=== PATIENT | female | born 1985 | race Two or more races ===

== ENCOUNTER 2024-09-11 18:47 | Emergency (ER) | payer OTHER, SELFPAY ==
--- NOTE | ~2024-09-11 | CT_ITS ---
CLINICAL HISTORY: LLQ pain N V D CT abdomen and pelvis with contrast Comparison: None Findings: No consolidation or effusion. There is focal stranding about the proximal descending colon, reference axial images 28 -35. No abscess or free air. Diverticulosis is present. No bowel obstruction. The liver, gallbladder, spleen, adrenal glands and pancreas are unremarkable. Kidneys, ureters and bladder appear normal. Uterus and adnexa are within expected limits. No acute osseous finding. Impression: Findings are consistent with diverticulitis involving the proximal descending colon. No free air or abscess. Follow-up recommended to ensure resolution. This document has been electronically signed by: Rashel Craig MD on 09/12/2024 03:56:15
--- NOTE | 2024-09-11 18:59 | ECG_ITS ---
Test Reason : CP Blood Pressure : */* mmHG Vent. Rate : 78 BPM Atrial Rate : 78 BPM P-R Int : 142 ms QRS Dur : 78 ms QT Int : 408 ms P-R-T Axes : 66 57 42 degrees QTcB Int : 465 ms Normal sinus rhythm with sinus arrhythmia Normal ECG No previous ECGs available Referred By: Rowan Mercado Electronically Signed By: BLAKE STROUD
[2024-09-11 19:05] VITALS: BP 126/87; PULSE 84; RESP 18; TEMP 36.8; O2SAT 100; BMI 21.8
--- NOTE | 2024-09-11 19:05 | ED_ITS ---
HPI - Abdominal Pain General Chief Complaint: General Medical Stated Complaint: Lower abdominal pain Time Seen by Provider: 09/12/24 00:56 History of Present Illness HPI narrative: a 39 year old female with no significant past medical history presenting with 3 days of left sided abdominal pain. Pain is sharp and constant. Pain is associated with feeling bloated, vomiting x1 on day one, watery diarrhea x1 earlier this morning, chills and sweats. She reports feeling hot and unwell a day ago but did not check for a fever. Denies any chest pain, URI symptoms, dysuria or hematuria. No sick contacts or known exposure to GI illness. Also states having an abnormal gush of blood last week when her period began. At that point she had soaked through her clothes but has not had a similar episode again. Denies any history of ovarian cysts although states having an irregular cycle that has worsened since coming off control. She has taken Ibuprofen for the pain with slight relief. Additionally she experiences feeling nauseous upon walking to the bathroom in the ED. MD elicited complaint: abdominal pain and flank pain Pertinent past history: none Onset (ago): day(s) Pain Consistency: constant Location: diffuse and LLQ Severity: moderate Quality: sharp Radiation: LLQ Exacerbating factors: nothing Relieving factors: nothing Associated symptoms: nausea, vomiting, diarrhea and chills Related Data Date of Last Menstrual Period: 10/04/24 Previous Rx's ?Medication ?Instructions ?Recorded levofloxacin 500 mg tablet 500 mg PO DAILY 10 days #10 tabs 09/12/24 metronidazole 500 mg tablet 500 mg PO TID #30 tabs 09/12/24 tramadol 50 mg tablet 50 mg PO Q6H PRN pain #20 tabs 09/12/24 Allergies Allergy/AdvReac Type Severity Reaction Status Date / Time Sulfa (Sulfonamide Allergy Unknown Verified 09/11/24 19:08 Antibiotics) Review of Systems Review of Systems Yes all other systems are reviewed and are negative PMFSH Past Medical History Attestation statement: The following information was validated with the patient. Source: old records reviewed Date of Last Menstrual Period: 10/04/24 Social History Social History Alcohol intake: current Alcohol intake frequency: holidays/special occasions only Physical Exam ED Vital Signs: Vital Signs - 24 hr 09/12/24 04:08 09/12/24 06:37 Temperature 97.9 F 98.1 F Pulse Rate 65 65 Respiratory Rate 18 18 Blood Pressure 102/57 L 108/66 Pulse Oximetry 99 Oxygen Delivery Method Room Air BMI result Body Mass Index 21.8 Const General: cooperative, healthy appearing, comfortable and no acute distress GI Palpation (GI): Tenderness to palpation present (GI) (diffuse abdominal tenderness that radiates to the LLQ, worse LUQ/LLQ) in the LLQ and in the LUQ Course Course Course Narrative: This is an RME: Additional HPI, ROS, PE not included below will be deferred to primary provider. RME assessment and note performed by: Rowan Mercado PA-C This is a 34-dwtx-veb-female, with no known medical problems, who presents to the ER with complaints of lower abdominal pain and shortness of breath. Reports that last night she had a fevers. Endorsing diarrhea this AM. No urinary symptoms. No sick contacts. LLQ TTP. Plan: Labs, UA, CXR, EKG, further ER eval needed. Reevaluation(s) Reevaluation #1: patient signed out to ED attending Dr. Marie pending CT of the abdomen and pelvis, re-evaluation and disposition. Time: 04:01 Reevaluation #2: Dr. Marie : CT scan showed uncomplicated diverticulitis will give a dose of IV Zosyn discharge patient on Levaquin and Flagyl advised to follow up as outpatient Medical Decision Making Medical Decision Making MDM Narrative: 39 year old female with no significant past medical history presenting for evaluation of 3 day history of sharp left sided abdominal pain that is associated with one episode of vomiting, diarrhea, sweats, chills, and bloating. She is afebril, vitally stable, in no acute distress. Physical exam reveals diffuse abdominal tenderness to palpation in all 4 quadrants that radiates to the LLQ, there is moderate pain to palpation of the LLQ and LUQ. Pt denies any URI symptoms or sick contacts making a viral illness less likely. She denies any urinary symptoms including dysuria, increased frequency, hematuria, significant flank pain. No CVA tenderness. Diagnostics obtained prior to my assumption included a UA which showed no evidence suggestive of a UTI and given no CVA tenderness pyelonephritis less likely. CBC revealed no leukocytosis, BMP not suggestive of acute kidney injury. EKG revealed normal sinus rhythm with a ventricular rate of 78, QTC is 465, no ST-elevation, no T-wave inversion. Given presentation, location of abdominal pain and age demographic, there is an increased concern for diverticulitis. Will obtain CTAP with contrast. Additionally, due to the patient reporting a gush of blood during her last menstrual cycle and location of pain initially reported in the LLQ there is a potential for an ovarian etiology, although low likelyhood. Will consider additional imaging with an ultrasound to look for cysts that could have ruptures if CT is nondiagnostic. Will give ketorolac and zofran in the meantime for pain and nausea control. Differential Diagnosis Differential Diagnoses: The differential diagnosis associated with the presentation includes ( see narrative above) Admission/Observation Consideration of admission/observation: Escalation of care including admission/observation considered Lab Data MDM Lab Attestation statement: I reviewed the patient's lab results. (see narrative above) 09/11/24 19:25 09/11/24 19:25 Labs: Lab Results 09/11/24 09/12/24 Range/Units 19:25 01:15 WBC 9.8 (4.8-10.8) X10*3/uL RBC 3.90 L (4.20-5.50) X10*6/uL Hgb 10.9 L (12.0-16.0) g/dl Hct 32.8 L (37.0-47.0) % MCV 84.1 (80.0-98.0) fL MCH 27.9 (27.0-33.0) pg MCHC 33.2 (31.0-35.0) g/dl RDW 13.4 (11.0-16.0) % Plt Count 390 (160-400) X10*3/uL MPV 9.4 (9.4-12.3) fL Immature Gran % (Auto) 0.2 (0.0-0.4) % Neut % (Auto) 64.8 (45-73) % Lymph % (Auto) 25.0 (20-40) % [place] % (Auto) 7.8 (2-11) % Eos % (Auto) 1.5 (0-4) % Baso % (Auto) 0.7 (0-2) % Lymph # (Auto) 2.4 (1.2-4.9) X10*3/uL [place] # (Auto) 0.8 (0.1-1.2) X10*3/uL Eos # (Auto) 0.2 (0.0-0.4) X10*3/uL Baso # (Auto) 0.1 (0.0-0.2) X10*3/uL Abs Immat Gran (auto) 0.02 (0.00-0.03) X10*3/uL Absolute Neuts (auto) 6.3 (2.0-8.3) x10*3/uL Absolute Nucleated RBC 0.000 (0.0-0.012) X10*3/uL Nucleated RBC % (auto) 0.0 (0.0-0.2) /100WBC Sodium 141 (135-145) mmol/L Potassium 4.2 (3.3-5.1) mmol/L Chloride 108 (96-108) mmol/L Carbon Dioxide 27 (22-29) mmol/L Anion Gap 10 L (12-20) BUN 6 L (9-16) mg/dL Creatinine 0.66 (0.5-1.4) mg/dL Estim Creat Clear Calc 106.0 Estimated GFR > 60 Random Glucose 85 (60-115) mg/dL Calcium 9.5 (8.4-10.2) mg/dL Magnesium 2.2 (1.6-2.6) mg/dL Total Bilirubin 1.1 H (0.0-1.0) mg/dL Direct Bilirubin 0.3 (0.0-0.5) mg/dL AST 33 H (5-31) U/L ALT 20 (0-31) U/L Alkaline Phosphatase 62 (39-117) U/L Total Protein 7.3 (6.5-8.0) g/dL Albumin 4.2 (3.5-5.0) g/dL Lipase 27 (8-78) U/L Beta HCG, Quant < 2 mIU/mL Urine Color Yellow Urine Appearance Cloudy Urine pH 6.5 (5.0-9.0) Ur Specific [place] 1.015 (1.005-1.025) Urine Protein Negative (Neg-Trace) mg/dL Urine Glucose (UA) Negative (Negative) mg/dL Urine Ketones Trace (Negative) mg/dL Urine Blood Negative (Negative) Urine Nitrite Negative (Negative) Ur Leukocyte Esterase Trace H (Negative) Urine RBC 0-2 (0-2) /HPF Urine WBC 6-10 H (0-5) /HPF Ur Squamous Epith Cells >20 (0-2) /HPF Urine Bacteria 2+ (None Seen) Hyaline Casts 0-2 (0-2) /LPF Influenza Type A (PCR) NEGATIVE (Negative) Influenza Type B (PCR) NEGATIVE (Negative) RSV RNA Qual (PCR) NEGATIVE (Negative) SARS-CoV-2 RNA (RT-PCR) NEGATIVE (Negative) Radiology Impression Discussion of test interpretation with radiology: I have reviewed the radiologist's reading. Radiologist Impression: [address] [address] [address] Scan Report Signed Patient: Jesusita Fowler MR#: [id number] : 1985 Acct:[id number] Age/Sex: 39 / F ADM Date: 09/12/24 Loc: .ED Attending Dr: Ordering Physician: Belia Jeronimo CNP Date of Service: 09/12/24 Procedure(s): CT abdomen pelvis w IV con Accession Number(s): [id number] cc: Belia Jeronimo CNP; HALLE ALEMAN CYTOTECHNOLOGIST~ Report Number: [id number]: Total DLP = 400.00 mGy-cm CLINICAL HISTORY: LLQ pain N V D CT abdomen and pelvis with contrast Comparison: None Findings: No consolidation or effusion. There is focal stranding about the proximal descending colon, reference axial images 28 -35. No abscess or free air. Diverticulosis is present. No bowel obstruction. The liver, gallbladder, spleen, adrenal glands and pancreas are unremarkable. Kidneys, ureters and bladder appear normal. Uterus and adnexa are within expected limits. No acute osseous finding. Impression: Findings are consistent with diverticulitis involving the proximal descending colon. No free air or abscess. Follow-up recommended to ensure resolution. This document has been electronically signed by: Rashel Craig MD on 09/12/2024 03:56:15 External Record Review External record reviewed: Outpatient record Medications Administered Discontinued Medications Generic Name Dose Route Start Last Admin Trade Name Freq PRN Reason Stop Dose Admin Sodium Chloride 1,000 mls @ 999 mls/hr 09/12/24 02:30 09/12/24 06:29 Ns IV 09/12/24 03:30 Infused .Q1H1M JUSTO Infusion Piperacillin Sod/Tazobactam 50 mls @ 100 mls/hr 09/12/24 04:59 09/12/24 06:29 Sod 3.375 gm/ Sodium Chloride IV 09/12/24 05:28 Infused ONCE ONE Infusion Iohexol 85 ml 09/12/24 03:12 09/12/24 03:12 Iohexol 350 Mg/Ml 100 Ml Infus..Btl IV 09/12/24 03:13 85 ml ONCE ONE Administration Ketorolac Tromethamine 15 mg 09/12/24 02:23 09/12/24 03:14 Ketorolac Tromethamine 15 Mg/Ml Vial IVPUSH 09/12/24 02:24 15 mg ONCE ONE Administration Ondansetron HCl 4 mg 09/12/24 02:23 09/12/24 03:16 Ondansetron Hcl 4 Mg/2 Ml Vial IVPUSH 09/12/24 02:24 4 mg ONCE ONE Administration Discharge Plan Discharge Clinical Impression: Diverticulitis Patient Disposition: Home, Self-Care Instructions: Diverticulitis (ED), Diverticulitis Diet (ED) Additional Instructions: Drink plenty of fluids Liquid diet gradually progress as the pain tolerated Antibiotic as prescribed Pain medication as prescribed Report to the ER if pain gets worse/fever Prescriptions: New levofloxacin 500 mg tablet 500 mg PO DAILY 10 Days Qty: 10 0RF metronidazole 500 mg tablet 500 mg PO TID Qty: 30 0RF tramadol 50 mg tablet 50 mg PO Q6H PRN (Reason: pain) Qty: 20 0RF Interventions: ED Discharge Assessment Last Done: 09/12/24 06:37 Discharge Date/Time: 09/12/24 06:37 Print Language: Choose Not To Answer
[2024-09-11 19:38] LABS: MANUAL DIFF FLAG NO
[2024-09-11 19:48] LABS: Basophils Absolute Auto 0.1 X10*3/uL (0.0-0.2); Basophils Percent Auto 0.7 % (0-2); Eosinophils Absolute Auto 0.2 X10*3/uL (0.0-0.4); Eosinophils Percent Auto 1.5 % (0-4); Hematocrit 32.8 % (37.0-47.0); Hemoglobin 10.9 g/dl (12.0-16.0); Imm Gran Abs Auto 0.02 X10*3/uL (0.00-0.03); Imm Gran Pct Auto 0.2 % (0.0-0.4); Lymphocytes Absolute Auto 2.4 X10*3/uL (1.2-4.9); Mean Corpuscular HGB Conc 33.2 g/dl (31.0-35.0); Mean Corpuscular Hemoglobin 27.9 pg (27.0-33.0); Mean Corpuscular Volume 84.1 fL (80.0-98.0); Mean Platelet Volume 9.4 fL (9.4-12.3); Monocytes Absolute Auto 0.8 X10*3/uL (0.1-1.2); Monocytes Percent Auto 7.8 % (2-11); Neutrophils Absolute Auto 6.3 x10*3/uL (2.0-8.3); Neutrophils Percent Auto 64.8 % (45-73); Platelet Count 390 X10*3/uL (160-400); Red Cell Distribution Width 13.4 % (11.0-16.0); White Blood Count 9.8 X10*3/uL (4.8-10.8)
[2024-09-11 20:13] LABS: Alanine Aminotransferase 20 U/L (0-31); Albumin Level 4.2 g/dL (3.5-5.0); Alkaline Phosphatase 62 U/L (39-117); Anion Gap 10 (12-20); Aspartate Amino Transferase 33 U/L (5-31); Bilirubin Direct 0.3 mg/dL (0.0-0.5); Bilirubin Total 1.1 mg/dL (0.0-1.0); Blood Urea Nitrogen 6 mg/dL (9-16); Calcium 9.5 mg/dL (8.4-10.2); Carbon Dioxide 27 mmol/L (22-29); Chloride 108 mmol/L (96-108); Estimated Glomerular Filt Rate > 60; Glucose Random 85 mg/dL (60-115); HCG Quantitative < 2 mIU/mL; Lipase 27 U/L (8-78); Magnesium 2.2 mg/dL (1.6-2.6); Potassium 4.2 mmol/L (3.3-5.1); Sodium 141 mmol/L (135-145); Total Protein 7.3 g/dL (6.5-8.0)
[2024-09-11 20:27] LABS: Influenza A PCR NEGATIVE (Negative); Influenza B PCR NEGATIVE (Negative); Resp Syncy Virus RNA Qual PCR NEGATIVE (Negative); SARS COV2 PCR INHOUSE NEGATIVE (Negative)
[2024-09-12 01:21] LABS: Appearance Urine Cloudy; Color Urine Yellow; Glucose Urine UA Negative (Negative); Leukocyte Esterase Urine Trace (Negative); Nitrite Urine Negative (Negative); PH 6.5 (5.0-9.0); Specific Gravity - Urine 1.015 (1.005-1.025); UMIC TRIGGER UACC YES; Urine Blood Negative (Negative); Urine Ketones Trace mg/dL (Negative); Urine Protein Negative (Neg-Trace)
[2024-09-12 01:23] LABS: Bacteria Urine 2+ (None Seen); Hyaline Casts Urine 0-2 /LPF (0-2); RBC Urine 0-2 /HPF (0-2); Squamous Epithelial Cell Urine >20 /HPF (0-2); UACC Culture Trigger YES
[2024-09-12 01:50] VITALS: BP 115/69; PULSE 65; RESP 18; TEMP 36.6; O2SAT 100
[2024-09-12] MEDS: iohexoL 350 MG/ML 100 ML INFUS..BTL 85 ML IV (03:12)
[2024-09-12] MEDS: Ketorolac Tromethamine 15 MG/ML VIAL IVPUSH (03:14)
[2024-09-12] MEDS: 0.9 % Sodium Chloride 1,000 ML 999 ML IV (03:16)
[2024-09-12] MEDS: ondansetron HCL 4 MG/2 ML VIAL IVPUSH (03:16)
[2024-09-12 04:08] VITALS: BP 102/57; PULSE 65; RESP 18; TEMP 36.6
[2024-09-12] MEDS: Piperacillin Sodium/Tazobactam 3.375 GM in 0.9 % Sodium Chloride 50 ML IV (05:45)
[2024-09-12 06:37] VITALS: BP 108/66; PULSE 65; RESP 18; TEMP 36.7; O2SAT 99
== END 2024-09-12 06:37 | disposition home or self-care (01) ==
PROVIDERS: Physician Assistant Medical; Emergency Provider Internal Medicine; PCP Nurse Practitioner Family
DX: K57.32 Diverticulitis of large intestine without perforation or abscess without bleeding (principal); R10.2 Pelvic and perineal pain; R10.32 Left lower quadrant pain; R11.2 Nausea with vomiting, unspecified; R07.89 Other chest pain; Z03.818 Encounter for observation for suspected exposure to other biological agents ruled out; Z79.899 Other long term (current) drug therapy
CPT/HCPCS: 0241U; 36415; 74177; 80048; 80076; 81001; 83690; 83735; 84702; 85025; 87086; 93005; 96361; 96374; 96375; 99284; 99285; J1885; J2405; J2543; Q9967

== ENCOUNTER → 2024-09-11 18:59 | Outpatient (BNV) | payer OTHER, SELFPAY | PROVIDERS: Emergency Provider Internal Medicine; PCP Nurse Practitioner Family; Visit Provider Internal Medicine | DX: R07.9 Chest pain, unspecified (principal) | CPT/HCPCS: 93010 ==

== ENCOUNTER → 2024-09-12 02:22 | Outpatient (BNV) | payer OTHER, SELFPAY | PROVIDERS: Emergency Provider Internal Medicine; PCP Nurse Practitioner Family; Visit Provider Radiology Vascular & Interventional Radiology | DX: K57.92 Diverticulitis of intestine, part unspecified, without perforation or abscess without bleeding (principal) | CPT/HCPCS: 74177 ==

== ENCOUNTER 2024-09-14 12:16 | Emergency (ER) | payer SELFPAY ==
--- NOTE | ~2024-09-14 | CT_ITS ---
CLINICAL HISTORY: Diverticulitis? Abscess CT abdomen and pelvis with contrast Comparison: CT of the abdomen and pelvis from 09/12/2024 Findings: No consolidation of the imaged lung bases. Mild fat deposition of the liver, including adjacent to falciform ligament. The adrenal glands are normal. Gallbladder is mildly distended. Pancreas and spleen are unchanged. No hydronephrosis. Mild prominence of the right renal pelvis is nonspecific. Small mesenteric lymph nodes are likely reactive. No small bowel obstruction. Severe stool burden present, including cecum and transverse colon. Acute inflammatory stranding is most pronounced about the splenic flexure where wall thickening is likely due to colitis, without significant change from comparison. No free intraperitoneal air or formed abscess. Uterus is anteverted. No adnexal soft tissue mass. 2.4 cm cystic structure of the left ovary likely due to dominant follicle. Vascular calcifications are redemonstrated, including phleboliths in the pelvis. Mild wall thickening of the urinary bladder is nonspecific. No osseous change in the [id number]. IMPRESSION: 1. No significant change in colitis and/or diverticulitis of the splenic flexure. No interim abscess formation or perforation. 2. No small bowel obstruction. This document has been electronically signed by: Edin Castrejon MD on 09/14/2024 22:32:08
[2024-09-14 12:35] VITALS: BP 137/65; PULSE 75; RESP 18; TEMP 37.4; O2SAT 99; BMI 21.0
--- NOTE | 2024-09-14 12:37 | ED_ITS ---
HPI - General Adult General Chief complaint: Back Pain/Injury Stated complaint: Diverticulitis Time Seen by Provider: 09/14/24 19:20 Source: patient Mode of arrival: ambulatory Limitations: no limitations History of Present Illness ED Provider: HPI narrative: Patient's left lower quadrant pain for last 5 days was seen here on 09/12 diagnose at diverticulitis on oral antibiotics Levaquin and Flagyl comes back as pain is getting worse now radiating to the back and patient does not feel hungry slight nausea no vomiting no fever no chills Related Data Previous Rx's ?Medication ?Instructions ?Recorded levofloxacin 500 mg tablet 500 mg PO DAILY 10 days #10 tabs 09/12/24 metronidazole 500 mg tablet 500 mg PO TID #30 tabs 09/12/24 tramadol 50 mg tablet 50 mg PO Q6H PRN pain #20 tabs 09/12/24 polyethylene glycol 3350 17 17 g PO DAILY #238 grams 09/14/24 gram/dose oral powder (Miralax) Allergies Allergy/AdvReac Type Severity Reaction Status Date / Time Sulfa (Sulfonamide Allergy Unknown Verified 09/14/24 12:39 Antibiotics) Review of Systems 2 Review of Systems: Yes all other systems are reviewed and are negative PMFSH Social History Social History Alcohol intake: current Alcohol intake frequency: holidays/special occasions only Advance Directives: No Advance Directives Information Provided: Yes Do you have a plan to hurt others: No Plan Physical Exam ED Vital Signs: Vital Signs - 24 hr 09/14/24 12:35 09/14/24 18:24 09/14/24 21:17 Temperature 99.3 F 97.8 F Pulse Rate 75 66 85 Respiratory Rate 18 18 16 Blood Pressure 137/65 118/80 147/98 H Pulse Oximetry 99 100 100 Oxygen Delivery Method Room Air Room Air Room Air 09/14/24 23:48 09/15/24 00:06 Temperature 97.8 F 97.8 F Pulse Rate 68 68 Respiratory Rate 16 16 Blood Pressure 117/73 117/73 Pulse Oximetry 97 97 Oxygen Delivery Method Room Air Room Air BMI result Body Mass Index 21.0 Appearance: Alert. Oriented X3. No acute distress. Eyes: No pallor or icterus ENT: Pharynx normal. Oral Mucosa moist Neck: Normal inspection. Neck supple. CVS: Normal heart rate and rhythm. Pulses normal. Respiratory: No respiratory distress. Equal air entry bilateral, no wheezing/rales/rhonchi Abdomen: Soft and left lower quadrant tenderness with guarding no rebound tenderness Bowel sounds are present, no mass palpable, no CVA tenderness Skin: Skin warm and dry. Normal skin color. Normal skin turgor. Extremities: No lower extremity edema. No calf tenderness Neuro: Oriented X 3. No motor deficit. Course Course Course Narrative: RME performed by Fay Anne PA-C. Patient is a 39 year old assigned female at presenting to the emergency department with left sided back and left sided abdominal pain. Patient states that she she was here on 09/12/2024 and diagnosed with diverticulitis of the left proximal colon - but her pain continues to increase / worsen. Detailed physical exam and review of systems are deferred to the vacuum applicator operator. Labs ordered. Patient placed back in the waiting room pending room availability and results. Medications Administered Discontinued Medications Generic Name Dose Route Start Last Admin Trade Name Joseq PRN Reason Stop Dose Admin Bisacodyl 10 mg 09/14/24 23:23 09/14/24 23:46 Bisacodyl 5 Mg Tablet.Dr PO 09/14/24 23:24 10 mg ONCE ONE Administration Piperacillin Sod/Tazobactam 50 mls @ 100 mls/hr 09/14/24 19:31 09/14/24 22:25 Sod 3.375 gm/ Sodium Chloride IV 09/14/24 20:00 Infused ONCE ONE Infusion Sodium Chloride 1,000 mls @ 999 mls/hr 09/14/24 19:35 09/14/24 22:25 Ns IV 09/14/24 20:35 Infused .Q1H1M ONE Infusion Iohexol 85 ml 09/14/24 21:12 09/14/24 21:13 Iohexol 350 Mg/Ml 100 Ml Infus..Btl IV 09/14/24 21:13 85 ml ONCE ONE Administration Magnesium Hydroxide 30 ml 09/14/24 22:16 09/14/24 22:36 Milk Of Magnesia 30 Ml Oral.Susp PO 09/14/24 22:17 30 ml NOW STA Administration Morphine Sulfate 4 mg 09/14/24 22:14 09/14/24 22:28 Morphine Sulfate 4 Mg/Ml Cartridge IVPUSH 09/14/24 22:15 4 mg ONCE ONE Administration Protocol Ondansetron HCl 4 mg 09/14/24 22:14 09/14/24 22:27 Ondansetron Hcl 4 Mg/2 Ml Vial IVPUSH 09/14/24 22:15 4 mg ONCE ONE Administration Polyethylene Glycol 17 gm 09/14/24 23:23 09/14/24 23:45 Polyethylene Glycol 3350 17 Gm Powd.Pack PO 09/14/24 23:24 17 gm ONCE ONE Administration Medical Decision Making Medical Decision Making [facility] Narrative: Patient's uncomplicated diverticulitis already on Levaquin and Flagyl comes here for increased pain patient is taking tramadol and been constipated since the pain started patient was given milk of magnesia and MiraLax likely the cause of increased pain is constipation CT scan did not reveal any pus collection or worsening of the diverticulitis Differential Diagnosis Differential Diagnoses: The differential diagnosis associated with the presentation includes Admission/Observation Consideration of admission/observation: Escalation of care including admission/observation considered Lab Data [facility] Lab Attestation statement: I reviewed the patient's lab results. 09/14/24 13:34 09/14/24 13:34 Labs: Lab Results 09/14/24 09/14/24 Range/Units 13:34 20:19 WBC 5.3 (4.8-10.8) X10*3/uL RBC 3.94 L (4.20-5.50) X10*6/uL Hgb 10.8 L (12.0-16.0) g/dl Hct 33.8 L (37.0-47.0) % MCV 85.8 (80.0-98.0) fL MCH 27.4 (27.0-33.0) pg MCHC 32.0 (31.0-35.0) g/dl RDW 13.0 (11.0-16.0) % Plt Count 408 H (160-400) X10*3/uL MPV 9.2 L (9.4-12.3) fL Immature Gran % (Auto) 0.8 H (0.0-0.4) % Neut % (Auto) 59.4 (45-73) % Lymph % (Auto) 28.6 (20-40) % [place] % (Auto) 8.2 (2-11) % Eos % (Auto) 1.7 (0-4) % Baso % (Auto) 1.3 (0-2) % Lymph # (Auto) 1.5 (1.2-4.9) X10*3/uL [place] # (Auto) 0.4 (0.1-1.2) X10*3/uL Eos # (Auto) 0.1 (0.0-0.4) X10*3/uL Baso # (Auto) 0.1 (0.0-0.2) X10*3/uL Abs Immat Gran (auto) 0.04 H (0.00-0.03) X10*3/uL Absolute Neuts (auto) 3.1 (2.0-8.3) x10*3/uL Absolute Nucleated RBC 0.000 (0.0-0.012) X10*3/uL Nucleated RBC % (auto) 0.0 (0.0-0.2) /100WBC ESR 23 H (0-20) MM/HR Sodium 138 (135-145) mmol/L Potassium 4.1 (3.3-5.1) mmol/L Chloride 105 (96-108) mmol/L Carbon Dioxide 26 (22-29) mmol/L Anion Gap 11 L (12-20) BUN 8 L (9-16) mg/dL Creatinine 0.68 (0.5-1.4) mg/dL Estim Creat Clear Calc 102.3 Estimated GFR > 60 Random Glucose 76 (60-115) mg/dL Calcium 9.3 (8.4-10.2) mg/dL Magnesium 1.8 (1.6-2.6) mg/dL Total Bilirubin 0.6 (0.0-1.0) mg/dL AST 26 (5-31) U/L ALT 18 (0-31) U/L Alkaline Phosphatase 52 (39-117) U/L C-Reactive Protein 1.22 H (< or = 0.50) mg/dL Total Protein 7.1 (6.5-8.0) g/dL Albumin 4.2 (3.5-5.0) g/dL Urine Color Yellow Urine Appearance Clear Urine pH 5.5 (5.0-9.0) Ur Specific [place] 1.010 (1.005-1.025) Urine Protein Negative (Neg-Trace) mg/dL Urine Glucose (UA) Negative (Negative) mg/dL Urine Ketones 40 (Negative) mg/dL Urine Blood Negative (Negative) Urine Nitrite Negative (Negative) Ur Leukocyte Esterase Trace H (Negative) Urine RBC 0-2 (0-2) /HPF Urine WBC 0-5 (0-5) /HPF Ur Squamous Epith Cells 6-10 (0-2) /HPF Urine Bacteria None Seen (None Seen) Hyaline Casts 0-2 (0-2) /LPF Radiology Impression Discussion of test interpretation with radiology: I have reviewed the radiologist's reading. Radiologist Impression: [address] [address] [address] Scan Report Signed Patient: Jesusita Fowler MR#: [id number] : 1985 Acct:[id number] Age/Sex: 39 / F ADM Date: 09/14/24 Loc: .ED Attending Dr: Ordering Physician: Antoni Marie MD Date of Service: 09/14/24 Procedure(s): CT abdomen pelvis w IV con Accession Number(s): [id number] cc: HALLE ALEMAN VIDEO NETWORK ENGINEER; Antoni Marie MD~ Report Number: [id number]: Total DLP = 373.00 mGy-cm CLINICAL HISTORY: Diverticulitis? Abscess CT abdomen and pelvis with contrast Comparison: CT of the abdomen and pelvis from 09/12/2024 Findings: No consolidation of the imaged lung bases. Mild fat deposition of the liver, including adjacent to falciform ligament. The adrenal glands are normal. Gallbladder is mildly distended. Pancreas and spleen are unchanged. No hydronephrosis. Mild prominence of the right renal pelvis is nonspecific. Small mesenteric lymph nodes are likely reactive. No small bowel obstruction. Severe stool burden present, including cecum and transverse colon. Acute inflammatory stranding is most pronounced about the splenic flexure where wall thickening is likely due to colitis, without significant change from comparison. No free intraperitoneal air or formed abscess. Uterus is anteverted. No adnexal soft tissue mass. 2.4 cm cystic structure of the left ovary likely due to dominant follicle. Vascular calcifications are redemonstrated, including phleboliths in the pelvis. Mild wall thickening of the urinary bladder is nonspecific. No osseous change in the jfgzu-lh-lvql. IMPRESSION: 1. No significant change in colitis and/or diverticulitis of the splenic flexure. No interim abscess formation or perforation. 2. No small bowel obstruction. This document has been electronically signed by: Edin Castrejon MD on 09/14/2024 22:32:08 Discharge Plan Discharge Clinical Impression: Diverticulitis, Constipation Patient Disposition: Home, Self-Care Instructions: Diverticulitis (ED), Constipation (ED), Diverticulitis Diet (ED) Additional Instructions: Continue antibiotics as prescribed Drink plenty of fluids Medicine for constipation as prescribed Report to the ER if worsening of the pain/fever/vomiting Prescriptions: New polyethylene glycol 3350 [Miralax] 17 gram/dose powder 17 g PO DAILY Qty: 238 0RF No Action levofloxacin 500 mg tablet 500 mg PO DAILY 10 Days Qty: 10 0RF metronidazole 500 mg tablet 500 mg PO TID Qty: 30 0RF tramadol 50 mg tablet 50 mg PO Q6H PRN (Reason: pain) Qty: 20 0RF Interventions: ED Discharge Assessment Last Done: 09/15/24 00:06 Discharge Date/Time: 09/15/24 00:09 Print Language: Estonian
[2024-09-14 13:38] LABS: MANUAL DIFF FLAG NO
[2024-09-14 13:45] LABS: Basophils Absolute Auto 0.1 X10*3/uL (0.0-0.2); Basophils Percent Auto 1.3 % (0-2); Eosinophils Absolute Auto 0.1 X10*3/uL (0.0-0.4); Eosinophils Percent Auto 1.7 % (0-4); Hematocrit 33.8 % (37.0-47.0); Hemoglobin 10.8 g/dl (12.0-16.0); Imm Gran Abs Auto 0.04 X10*3/uL (0.00-0.03); Imm Gran Pct Auto 0.8 % (0.0-0.4); Lymphocytes Absolute Auto 1.5 X10*3/uL (1.2-4.9); Lymphocytes Percent Auto 28.6 % (20-40); Mean Corpuscular Hemoglobin 27.4 pg (27.0-33.0); Mean Corpuscular Volume 85.8 fL (80.0-98.0); Mean Platelet Volume 9.2 fL (9.4-12.3); Monocytes Absolute Auto 0.4 X10*3/uL (0.1-1.2); Monocytes Percent Auto 8.2 % (2-11); Neutrophils Absolute Auto 3.1 x10*3/uL (2.0-8.3); Neutrophils Percent Auto 59.4 % (45-73); Platelet Count 408 X10*3/uL (160-400); Red Blood Count 3.94 X10*6/uL (4.20-5.50); White Blood Count 5.3 X10*3/uL (4.8-10.8)
[2024-09-14 14:00] LABS: Alanine Aminotransferase 18 U/L (0-31); Albumin Level 4.2 g/dL (3.5-5.0); Alkaline Phosphatase 52 U/L (39-117); Anion Gap 11 (12-20); Aspartate Amino Transferase 26 U/L (5-31); Bilirubin Total 0.6 mg/dL (0.0-1.0); Blood Urea Nitrogen 8 mg/dL (9-16); C Reactive Protein 1.22 mg/dL (< or = 0.50); Calcium 9.3 mg/dL (8.4-10.2); Carbon Dioxide 26 mmol/L (22-29); Chloride 105 mmol/L (96-108); Creatinine Clr Calc Pharmacy 102.3; Estimated Glomerular Filt Rate > 60; Glucose Random 76 mg/dL (60-115); Magnesium 1.8 mg/dL (1.6-2.6); Potassium 4.1 mmol/L (3.3-5.1); Sodium 138 mmol/L (135-145); Total Protein 7.1 g/dL (6.5-8.0)
[2024-09-14 14:17] LABS: Erythrocyte Sedimentation Rate 23 MM/HR (0-20)
[2024-09-14 18:24] VITALS: BP 118/80; PULSE 66; RESP 18; TEMP 36.6; O2SAT 100
--- OUTSIDE RECORDS SUMMARY | 2024-09-14 19:47 | XMS_ITS | Clinical Summary ---
Author Organization [facility] Address [address] [place] [address] Care Team Providers Care Life Teacher Name Role Phone Edin Mccann MD Primary Care Provider [phone] Allergies Active Allergy Reactions Criticality Noted Date Comments Wahdbiowqmvkwru-Ymej-Ao Anxiety Low 09/21/2018 nightquil as well Sulfate Anxiety Low 09/21/2018 Medications Medication Sig Dispensed Refills Start Date End Date Status methocarbamol (ROBAXIN) 750 MG tablet Take 1 tablet (750 mg total) by mouth 3 (three) times a day as needed. 40 tablet 0 09/25/2018 Active oxyCODONE (ROXICODONE) 5 MG immediate release tablet Take 1-2 tabs by mouth every 4-6 hours as needed for pain 40 tablet 0 09/26/2018 Active Additional Information Patient not taking.Reason: Other, Reported on 11/09/2018 ibuprofen (ADVIL,MOTRIN) 800 MG tablet TAKE 1 TABLET BY MOUTH 3 TIMES A DAY,X30 DAYS 1 09/19/2018 Active Active Problems Problem Noted Date Diagnosed Date Status post lumbar discectomy 10/14/2018 Lumbar radiculopathy 09/21/2018 Social History Tobacco Use Types Packs/Day Years Used Date Smoking Tobacco: Never Smokeless Tobacco: Never Alcohol Use Standard Drinks/Week Comments Yes 0 (1 standard drink = 0.6 oz pur e alcohol) Sex and Gender Information Value Date Recorded Sex Assigned at Female 09/22/2018 10:47 AM EDT Gender Identity Not on file Sexual Orientation Not on file Last Filed Vital Signs Vital Sign Reading Time Taken Comments Blood Pressure 116/80 11/09/2018 1:10 PM EDT Pulse 68 09/25/2018 5:30 PM EDT Temperature 36.3 ??C (97.4 ??F) 11/09/2018 1:10 PM ED T Respiratory Rate 17 09/25/2018 5:30 PM EDT Oxygen Saturation 99% 09/25/2018 5:20 PM EDT Inhaled Oxygen Concentration - - Weight 58.7 kg (129 lb 6.4 oz) 11/09/2018 1:10 P M EDT Height 170.2 cm (5' 7 ) 11/09/2018 1:10 PM EDT Body Mass Index 20.27 11/09/2018 1:10 PM EDT Plan of Treatment Health Maintenance Due Date Last Done Comments Hepatitis B Vaccines (1 of 3 - 3-dose series) 1985 Hepatitis C Screening 1985 COVID-19 Vaccine (#1) 1984 Depression Screening 1996 Preventative Health Evaluation 2002 DTap / Tdap / Td (1 - Tdap) 2003 Cervical Cancer Screening (P ap Smear) 2005 Influenza Vaccine (#1) 2024 Pneumococcal Vaccine Aged Out No long er eligible based on patient's age to complete this topic RSV Ped < 20 months Aged Out No longe r eligible based on patient's age to complete this topic Care Teams Life Teacher Relationship Specialty Start Date End Date Edin Mccann MD PCP - General Fight Manager 09/07/18
--- OUTSIDE RECORDS SUMMARY | 2024-09-14 19:47 | XMS_ITS | Clinical Summary ---
[facility] [address] [place] [address] Care Team Providers Care Pulverizer Tender Name Role Phone Edin Mccann MD Primary Care Provider [phone] Surgical History Surgery Date Site/Laterality Comments OTHER SURGICAL HISTORY PROCEDURE:lower back surgery MINIMALLY INVASIVE MICRODISCECTOMY LUMBAR SPINE 09/25/2018 Left Posterior PROCEDURE:MINIMALLY INVASIVE MICRODISCECTOMY LUMBAR SPINE;COMMENT:Procedure: L5-S1 MINI INVASIVE DISC REEXPLORATION, LEFT DISCECTOMY; Surgeon: Tommy Mendoza MD; Location: [facility] MAIN OPERATING ROOM; Service: Spine; Laterality: Left Posterior; Medical History Medical History Date Comments Anxiety DX:Anxiety Social History Tobacco Use Types Packs/Day Years Used Date Smoking Tobacco: Never Smokeless Tobacco: Never Alcohol Use Standard Drinks/Week Comments Yes 0 (1 standard drink = 0.6 oz pur e alcohol) Comments Unknown Sex and Gender Information Value Date Recorded Sex Assigned at Not on file Legal Sex Female 6:06 AM EST Gender Identity Not on file Sexual Orientation Not on file Obstetrics History Plan of Treatment Health Maintenance Due Date Last Done Comments Breast Cancer Screening 1984 DTaP,Tdap,and Td Vaccines (1 - Tdap) 2003 Hepatitis B Vaccines (1 of 3 - 19+ 3-dose series) 2003 Cervical Cancer Screening: P ap Smear 2005 COVID-19 Vaccine ( - 2023-2 5 season) 2024 Influenza Vaccine (#1) 2024 HIB Vaccines Aged Out No longer eligi ble based on patient's age to complete this topic HPV Vaccines Aged Out No longer eligi ble based on patient's age to complete this topic Hepatitis A Vaccines Aged Out No long er eligible based on patient's age to complete this topic IPV Vaccines Aged Out No longer eligi ble based on patient's age to complete this topic MMR Vaccines Aged Out No longer eligi ble based on patient's age to complete this topic Meningococcal ACWY Vaccine Aged Out N o longer eligible based on patient's age to complete this topic Meningococcal B Vacine Aged Out No lo nger eligible based on patient's age to complete this topic Pneumococcal Vaccine: Pediat rics (0 to 5 Years) and At-Risk Patients (6 to 64 Years) Aged Out No longer eligible b ased on patient's age to complete this topic RSV Immunization Patients Un l[place] 20 months Aged Out No longer eligible b ased on patient's age to complete this topic Varicella Vaccines Aged Out No longer eligible based on patient's age to complete this topic Care Teams Pulverizer Tender Relationship Specialty Start Date End Date Edin Mccann MD PCP - General Filtrose Crusher 09/07/18
[2024-09-14 20:32] LABS: Appearance Urine Clear; Color Urine Yellow; Glucose Urine UA Negative (Negative); Leukocyte Esterase Urine Trace (Negative); Nitrite Urine Negative (Negative); PH 5.5 (5.0-9.0); UMIC TRIGGER UACC YES; Urine Blood Negative (Negative); Urine Ketones 40 mg/dL (Negative); Urine Protein Negative (Neg-Trace)
[2024-09-14 20:44] LABS: Bacteria Urine None Seen (None Seen); Hyaline Casts Urine 0-2 /LPF (0-2); RBC Urine 0-2 /HPF (0-2); WBC Urine 0-5 /HPF (0-5)
[2024-09-14] MEDS: 0.9 % Sodium Chloride 1,000 ML 999 ML IV (20:56)
[2024-09-14] MEDS: Piperacillin Sodium/Tazobactam 3.375 GM in 0.9 % Sodium Chloride 50 ML IV (20:57)
[2024-09-14] MEDS: iohexoL 350 MG/ML 100 ML INFUS..BTL 85 ML IV (21:13)
[2024-09-14 21:17] VITALS: BP 147/98; PULSE 85; RESP 16; O2SAT 100
[2024-09-14] MEDS: ondansetron HCL 4 MG/2 ML VIAL IVPUSH (22:27)
[2024-09-14] MEDS: Morphine Sulfate 4 MG/ML CARTRIDGE IVPUSH (22:28)
[2024-09-14] MEDS: Milk of Magnesia 30 ML ORAL.SUSP PO (22:36)
[2024-09-14] MEDS: polyethylene glycoL 3350 17 GM POWD.PACK PO (23:45)
[2024-09-14] MEDS: bisacodyL 5 MG TABLET.DR 10 MG PO (23:46)
[2024-09-14 23:48] VITALS: BP 117/73; PULSE 68; RESP 16; TEMP 36.6; O2SAT 97
[2024-09-15 00:06] VITALS: BP 117/73; PULSE 68; RESP 16; TEMP 36.6; O2SAT 97
== END 2024-09-15 00:09 | disposition home or self-care (01) ==
PROVIDERS: Physician Assistant Medical; Emergency Provider Internal Medicine; PCP Nurse Practitioner Family
DX: K57.32 Diverticulitis of large intestine without perforation or abscess without bleeding (principal); M54.50 Low back pain, unspecified; K59.00 Constipation, unspecified; R11.0 Nausea; Z79.899 Other long term (current) drug therapy
CPT/HCPCS: 36415; 74177; 80053; 81001; 83735; 85025; 85652; 86140; 96361; 96374; 96375; 99284; J2270; J2405; J2543; Q9967

== ENCOUNTER → 2024-09-14 19:35 | Outpatient (BNV) | payer SELFPAY | PROVIDERS: Emergency Provider Internal Medicine; PCP Nurse Practitioner Family; Visit Provider Radiology Neuroradiology | DX: K57.92 Diverticulitis of intestine, part unspecified, without perforation or abscess without bleeding (principal) | CPT/HCPCS: 74177 ==